=== PATIENT | female | born 1980 | race Caucasian/White ===

== ENCOUNTER 2020-12-01 19:26 | Emergency (ER) | payer OTHER, SELFPAY ==
--- NOTE | ~2020-12-01 | XR_ITS ---
EXAMINATION: XR wrist LT min 3V DATE: 12/01/2020 20:02 INDICATION: Left wrist pain. TECHNIQUE: 4 views of left wrist were obtained. COMPARISON: None. FINDINGS: Bone alignment is normal. No fracture. There is a an 8 mm nonaggressive lytic lesion in dis brittnee scaphoid. There is mild osteoarthritis in first carpometacarpal joint. IMPRESSION: 1. Nonaggressive lytic lesion in scaphoid, most likely an enchondroma. 2. Mild osteoarthritis of first carpometacarpal joint. Reviewed, dictated and finalized at location A. [facility] [employer]
[2020-12-01 19:29] VITALS: BP 144/94; PULSE 93; RESP 16; TEMP 36.6; O2SAT 100
--- NOTE | 2020-12-01 20:22 | ED.GENADULT ---
HPI - General Adult General Chief complaint: Extremity Injury, Upper Stated complaint: left wrist injury Time Seen by Provider: 12/01/20 19:33 Source: patient Mode of arrival: ambulatory Limitations: no limitations History of Present Illness HPI narrative: Patient is a 40-year-old female who presents with left wrist pain noting aching pain of the left wrist along the thumb patient woke with the pain denies injury or trauma or similar occurrence patient able to perform range of motion but notes weakness with range of motion and activity but otherwise denies radicular symptoms or paresthesias or other complaints has not taken anything for his symptoms presents per private vehicle no distress Related Data Home Medications Medication Instructions Recorded Confirmed venlafaxine mg PO 12/01/20 venlafaxine mg PO 12/01/20 12/01/20 Allergies Allergy/AdvReac Type Severity Reaction Status Date / Time hydrocodone Allergy Mild Itching, Verified 12/01/20 19:35 ABD. CRAMPING morphine Allergy Mild Itching Verified 12/01/20 19:35 ciprofloxacin Allergy Unknown HIVES Verified 12/01/20 19:35 codeine Allergy Unknown ITCHING Verified 12/01/20 19:35 Review of Systems Review of Systems: All systems reviewed & are unremarkable except as noted in HPI and below PMFSH Surgical History Surgical History (Updated 12/01/20 @ 20:23 by Morales Campo PA-C) History of orthopedic surgery Social History Social History (Updated 12/01/20 @ 20:23 by Morales Campo PA-C) Smoking status: Never smoker Exam Narrative: Exam Narrative: GENERAL: Well-appearing, well-nourished, and in no acute distress. HEAD: Normocephalic, atraumatic. EYES: PERRLA and EOMI. ENT: Nares clear, no rhinorrhea or epistaxis. Mucous membranes moist. EXTREMITIES: Normal range of motion. No edema. Tenderness along the radial aspect of the thumb and wrist no deformities noted SKIN: Warm, dry, no rash. NEURO: No focal deficits. Alert and oriented x3. Neurovascularly intact PSYCH: Normal mood and affect. Course Course Emergency Course: Patient room no distress felt appropriate for outpatient reevaluation Vital Signs Vital signs: Vital Signs Temperature 97.9 F 12/01/20 19:29 Pulse Rate 93 12/01/20 19:29 Respiratory Rate 16 12/01/20 19:29 Blood Pressure 144/94 H 12/01/20 19:29 Pulse Oximetry 100 12/01/20 19:29 Temperature 97.9 F 12/01/20 19:29 Pulse Rate 93 12/01/20 19:29 Respiratory Rate 16 12/01/20 19:29 Blood Pressure 144/94 H 12/01/20 19:29 Pulse Oximetry 100 12/01/20 19:29 Medical Decision Making MDM Narrative Medical decision making narrative: Patients injury or pain is consistent with musculoskeletal etiology. No signs of neurological or vascular compromise on exam. Compartments and tisues are soft without signs of compartment syndrome. Pain is felt appropriate for further evaluation on an outpatient basis. Vital Signs Vital Signs: Vital Signs Temperature 97.9 F 12/01/20 19:29 Pulse Rate 93 12/01/20 19:29 Respiratory Rate 16 12/01/20 19:29 Blood Pressure 144/94 H 12/01/20 19:29 Pulse Oximetry 100 12/01/20 19:29 Temperature 97.9 F 12/01/20 19:29 Pulse Rate 93 12/01/20 19:29 Respiratory Rate 16 12/01/20 19:29 Blood Pressure 144/94 H 12/01/20 19:29 Pulse Oximetry 100 12/01/20 19:29 Imaging Data Radiologist's impression: ITS Impressions Wrist X-Ray 12/01/20 20:05 IMPRESSION: 1. Nonaggressive lytic lesion in scaphoid, most likely an enchondroma. 2. Mild osteoarthritis of first carpometacarpal joint. Discharge Plan Discharge Clinical Impression: Sprain and strain of left wrist Patient Disposition: Home, Self-Care Condition: Stable Instructions: Antibiotic Form, Arthralgia (ED) Additional Instructions: Follow-up with your specialist in the next 7 days if symptoms persist Return if symptoms worsen or concerns or any increase in redness
== END 2020-12-01 20:39 | disposition home or self-care (01) ==
PROVIDERS: Emergency Provider Emergency Medicine; PCP Nurse Practitioner
DX: S63.502A Unspecified sprain of left wrist, initial encounter (principal); S66.912A Strain of unspecified muscle, fascia and tendon at wrist and hand level, left hand, initial encounter; M18.9 Osteoarthritis of first carpometacarpal joint, unspecified; X58.XXXA Exposure to other specified factors, initial encounter
CPT/HCPCS: 73110; 99283

== ENCOUNTER 2020-12-19 12:50 | Emergency (ER) | payer OTHER, SELFPAY ==
[2020-12-19 12:59] VITALS: BP 132/86; PULSE 90; RESP 20; TEMP 36.2; O2SAT 100
--- NOTE | 2020-12-19 14:18 | ED.BACK ---
HPI - Back Pain/Injury General Chief Complaint: Back Pain/Injury Stated Complaint: back pain Time Seen by Provider: 12/19/20 13:59 Source: patient Mode of arrival: ambulatory Limitations: no limitations History of Present Illness HPI Narrative: This is a 40 year old female that presents to the ER for low back pain since yesterday. No known injury or trauma. 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 Reports pain is in the left buttock and radiates down the left leg. Does report history of sciatic problems. She took Tylenol and ibuprofen yesterday with some relief. She has not taken any pain medication yet today. Denies fever, saddle anesthesia, or bowel/bladder incontinence. Related Data Home Medications Medication Instructions Recorded Confirmed venlafaxine mg PO 12/01/20 venlafaxine mg PO 12/01/20 12/01/20 Allergies Allergy/AdvReac Type Severity Reaction Status Date / Time hydrocodone Allergy Mild Itching, Verified 12/19/20 13:02 ABD. CRAMPING morphine Allergy Mild Itching Verified 12/19/20 13:02 ciprofloxacin Allergy Unknown HIVES Verified 12/19/20 13:02 codeine Allergy Unknown ITCHING Verified 12/19/20 13:02 Review of Systems Review of Systems: Narrative: CONSTITUTIONAL: Denies fever SKIN: Denies rash MUSCULOSKELETAL: Reports back pain, joint pain, and myalgia. NEUROLOGIC: Denies numbness, or weakness. All systems reviewed & are unremarkable except as noted in HPI and below PMFSH Past Medical History Medical History (Updated 12/19/20 @ 16:03 by Angela Paz PA-C) History of depression Surgical History Surgical History (Updated 12/01/20 @ 20:23 by Morales Campo PA-C) History of orthopedic surgery Social History Social History (Updated 12/01/20 @ 20:23 by Morales Campo PA-C) Smoking status: Never smoker Exam Narrative: Exam Narrative: GENERAL: Well-appearing, obese, and in no acute distress. HEAD: Normocephalic, atraumatic. EYES: EOMI. CHEST: Clear to auscultation. No respiratory distress. No wheezes rales or rhonchi HEART: Regular rate and rhythm. No murmur heard. Normal peripheral pulses. BACK: No midline spinal tenderness EXTREMITIES: Normal range of motion. No edema. Strength equal in bilateral lower extremities (5/5). Normal patellar reflexes bilaterally SKIN: Warm, dry, no rash. NEURO: No focal deficits. Alert and oriented x3. PSYCH: Normal mood and affect Course Vital Signs Vital signs: Vital Signs Temperature 97.2 F L 12/19/20 12:59 Pulse Rate 90 12/19/20 12:59 Respiratory Rate 20 12/19/20 12:59 Blood Pressure 132/86 12/19/20 12:59 Pulse Oximetry 100 12/19/20 12:59 Temperature 97.2 F L 12/19/20 12:59 Pulse Rate 90 12/19/20 12:59 Respiratory Rate 20 12/19/20 12:59 Blood Pressure 132/86 12/19/20 12:59 Pulse Oximetry 100 12/19/20 12:59 MDM - Back Pain/Injury MDM Narrative Medical decision making narrative: Patient presents to the emergency department for low back pain since yesterday. No known injury or trauma. Patient reports relief with Toradol, Tylenol, and Valium. She is neurologically intact. She is stable and felt appropriate for further outpatient evaluation. She was given warnings to return to the ER Critical Care Time Critical Care Time Critical Care Time: No Discharge Plan Discharge Clinical Impression: Sciatica Qualifiers: Laterality: left Qualified Code(s): M54.32 - Sciatica, left side Patient Disposition: Home, Self-Care Condition: Stable Instructions: Sciatica (ED) Additional Instructions: Return to the ER if you experience fever, weakness, numbness, bowel/bladder incontinence, or any other symptoms that are concerning to you Rest, use ice/heat, take anti-inflammatories (Aleve, Ibuprofen, Naproxen, etc) or Tylenol as needed for pain as well as muscle relaxer (diazepam) as needed for pain. Muscle relaxers can make you drowsy, do not drive if you take t
[2020-12-19] MEDS: KETOROLAC (*BKC) 60 MG/2 ML VIAL IM (14:37)
[2020-12-19] MEDS: ACETAMINOPHEN 500 MG TABLET 1000 MG PO (14:37)
[2020-12-19] MEDS: diazePAM INJ (*CRX) 10 MG/2 ML SYRINGE 5 MG IM (14:37)
[2020-12-19 16:43] VITALS: BP 128/76; PULSE 78; RESP 15; O2SAT 97
== END 2020-12-19 16:44 | disposition home or self-care (01) ==
PROVIDERS: Emergency Provider Emergency Medicine; PCP Nurse Practitioner
DX: M54.42 Lumbago with sciatica, left side (principal)
CPT/HCPCS: 96372; 99284; A9270; J1885; J3360

== ENCOUNTER 2023-03-05 12:17 | Outpatient (CLI) | payer OTHER, SELFPAY ==
--- NOTE | ~2023-03-05 | XR_ITS ---
EXAMINATION: XR finger 5th RT min 2V DATE: 03/05/2023 12:37 INDICATION: Right hand fifth digit fracture. TECHNIQUE: 3 views of right hand fifth digit were obtained. COMPARISON: None. FINDINGS: There is a fracture of dorsal base of fifth distal phalanx with 1.5 mm distraction of the d orsal fracture fragment. Other joint spaces are normal. IMPRESSION: 1. Fracture of dorsal base of fifth distal phalanx. Reviewed, dictated and finalized at location A.
== END 2023-03-05 12:18 | disposition home or self-care (01) ==
LOC: ANHIMG 12:19
PROVIDERS: PCP Family Medicine Sports Medicine; Visit Provider Plastic Surgery
DX: S62.666A Nondisplaced fracture of distal phalanx of right little finger, initial encounter for closed fracture (principal); X58.XXXA Exposure to other specified factors, initial encounter
CPT/HCPCS: 73140

== ENCOUNTER 2023-04-02 14:00 | Outpatient (CLI) | payer OTHER, SELFPAY ==
--- NOTE | ~2023-04-02 | XR_ITS ---
EXAMINATION: XR finger 5th RT min 2V DATE: 04/02/2023 14:13 INDICATION: Fracture of distal phalanx of right hand fifth digit. TECHNIQUE: 3 views of right hand fifth digit were obtained. COMPARISON: Right hand fifth digit radiographs 03/05/2023 FINDINGS: There is a fracture of dorsal base of fifth distal phalanx with 1 mm distraction of the hernán brittni fracture fragment. Callus is not identified. Other joint spaces are normal. IMPRESSION: 1. Fracture of dorsal base of fifth distal phalanx. Reviewed, dictated and finalized at location E.
== END 2023-04-02 14:01 | disposition home or self-care (01) ==
LOC: ANHLAB 14:02 → ANHIMG 14:02
PROVIDERS: PCP Family Medicine Sports Medicine; Visit Provider Plastic Surgery
DX: S62.666A Nondisplaced fracture of distal phalanx of right little finger, initial encounter for closed fracture (principal); X58.XXXA Exposure to other specified factors, initial encounter
CPT/HCPCS: 73140

== ENCOUNTER 2024-02-22 01:10 | Day surgery (SDC) | payer BC, SELFPAY ==
[2024-02-14 12:13] VITALS: BMI 41.7
--- NOTE | 2024-02-14 12:20 | PC.NURSE ---
Report to the Outpatient Waiting Room, entrance under the green pavilion located off [facility], at time 0830 on date 02/22/24. Planned Procedure Time: 1030. Time changes happen often and if your time is changed the preop area will call you the afternoon before. - You and your visitor will be asked to self-screen and do not enter if you have any COVID symptoms. - A mask is optional within the hospital at this time. Patients may have clear liquids (water, carbonated beverages, clear teas, apple juice) until 3 hours prior to surgery with a maximum of 20 ounces. - No food from midnight until time of surgery Take the following medications with a SIP of water the morning of surgery: WELLBUTRIN, VENLAFAXINE DO NOT STOP ANY OF YOUR OTHER PRESCRIPTION MEDICATIONS PRIOR TO SURGERY ?EXCEPT THE FOLLOWING Medications to discontinue per physician: N/A Date to take last dose: N/A Please no make-up, nail bulgarian, hairspray, perfume, deodorant, or body powder the day of surgery. No jewelry (including any body piercings) or valuables the day of surgery, leave them at home. Please take a shower or bath the night before, or the morning of, surgery with an antibacterial soap. Wear comfortable, loose fitting clothing. - Jewelry must be removed prior to entering the operating room. Rings and piercings that are not removed may be cut off. - The hospital will not accept responsibility for valuables. - Please leave all valuables, including medications, at home the day of surgery. If you are going home after surgery, a licensed van driver helper must drive you home. - NO public transportation without another adult if you receive anesthesia. - We recommend that an adult stay with you for 24 hours following discharge. - We also recommend that you do not drive, make important decision, drink alcoholic beverages, or take any drugs that were not prescribed by your health care provider for at least 24 hours after your discharge time. Follow any additional instructions given to you from your surgeon. If you or anyone in your household have experienced Covid symptoms in the past week, please notify your surgeon or the nurse liaison at the phone number below for possible testing. Telephone instructions given to PT - CRYSTAL and asked if any additional questions and then verbalized understanding. Patient advised to call surgeon office or pre surgery nurse liaison [phone] if any additional questions.
[2024-02-22] VITALS (8 sets, daily range): BP systolic 117–140; BP diastolic 54–87; PULSE 69–79; RESP 14–16; TEMP 36.3–36.6; O2SAT 94–100
[2024-02-22] MEDS: LACTATED RINGERS 1,000 ML 30 ML IV CONT ×2 (09:00→11:10)
[2024-02-22] MEDS: ACETAMINOPHEN 500 MG TABLET 1000 MG PO (09:00)
[2024-02-22] MEDS: KETOROLAC 15 MG/ML VIAL (*BKC) IV PUSH (09:22)
--- NOTE | 2024-02-22 09:41 | P.PNAN_ITS ---
Anes - Initial Pre Proc Eval Procedure: Operation Date: 02/22/24 10:30 Proposed Procedures p Laparoscopic Myomectomy - Елена Goode MD Date/Time: 02/22/24 09:41 Surgeon: Елена Goode MD Pre Op Diagnosis: pedunculated leiomyoma of uterus Patient Data Age: 43 Gender: F Height: 1.69 m Weight: 119.1 kg Last Vital Signs Temp 97.9 F 02/22/24 09:23 Pulse 79 02/22/24 09:23 Resp 16 02/22/24 09:23 BP 118/71 02/22/24 09:23 Pulse Ox 100 02/22/24 09:23 O2 Del Method Room Air 02/22/24 09:23 Allergies Allergy/AdvReac Type Severity Reaction Status Date / Time hydrocodone Allergy Mild Itching, Verified 02/14/24 12:09 ABD. CRAMPING morphine Allergy Mild Itching Verified 02/14/24 12:09 ciprofloxacin Allergy Unknown HIVES Verified 02/14/24 12:09 codeine Allergy Unknown ITCHING Verified 02/14/24 12:09 doxycycline Allergy Rash Verified 02/14/24 12:11 Home Medications Medication Instructions Recorded Confirmed Type venlafaxine 150 mg 150 mg PO DAILY 12/01/20 02/14/24 History capsule,extended release 24 hr venlafaxine 75 mg capsule,extended 75 mg PO DAILY 12/01/20 02/14/24 History release 24 hr bupropion HCl 150 mg 24 hr tablet, 150 mg PO DAILY 02/14/24 02/14/24 History extended release Patient hx anesthesia problems: none Family hx anesthesia problems: none Results Review: All pre-operative results and documents have been reviewed as part of the pre- operative evaluation. FOR[facility]LY [facility] Past Medical History Medical History (Updated 12/20/20 @ 00:00 by Criss Hernandez) History of depression Surgical History Surgical History (Updated 12/01/20 @ 20:23 by Morales Campo, MORGAN) History of orthopedic surgery Social History Social History (Updated 12/01/20 @ 20:23 by Morales Campo, MORGAN) Years smoked: 30 Smoking status: Current every day smoker Tobacco type: cigarettes and e-cigarettes/vaping Additional smoking assessment comments: QUIT CIGARETTES 2021, NOW VAPING Alcohol intake: current Alcohol use details: 1/YEAR Substance use: never Substance use type: does not use Living arrangements: with family Spiritual care concerns: No Anes - Eval Final PreProcedure Day of Procedure 02/22/24 09:41 Patient weight: morbidly obese Heart: regular rate and rhythm Lungs: clear to auscultation Airway: Mallampati scale class II Neurological: alert and oriented Last oral intake: >/= 8 hours ASA classification: III Emergent: no Anesthetic plan: proceed Anesthesia type and monitoring: general ETT and standard monitoring Results Review: All pre-operative results and documents have been reviewed as part of the pre- operative evaluation. Informed Consent: The patient's anesthetic plan and its attendant risks and benefits were discussed with the patient/family/POA. Questions were solicited and answers provided to the satisfaction of the patient/family/POA.
--- NOTE | 2024-02-22 09:47 | PM.IMHP ---
H&P: HPI History of Present Illness Date/Time: 02/22/24 09:47 Chief Complaint: Pelvic pain Narrative: 43-year-old female with pelvic pain and uterine fibroids. she has a pedunculated fibroid in the vagina. We have agreed to perform transvaginal myomectomy. she understands the procedure. She understands that there is risk. She understands injuries may occur that result in hospitalization, more surgery, and severe illness. She understands there is risk of hemorrhage infection . she denies any nausea, vomiting, fever, chills. She denies any chest pain shortness of breath. Review of Systems Review of Systems: All systems reviewed & are unremarkable except as noted in HPI and below Constitutional: Constitutional: Denies chills, Denies fatigue, Denies fever(s) and Denies weakness Eyes: Eyes: Denies blurry vision, Denies change in vision, Denies loss of peripheral vision, Denies loss of vision, Denies other visual disturbances and Denies eye pain ENT: Denies vertigo, Denies dizziness, Denies hearing loss, Denies mouth pain, Denies nasal obstruction, Denies neck mass and Denies neck pain Cardiovascular: Cardiovascular: Denies chest pain, Denies diaphoresis, Denies syncope, Denies leg edema and Denies dyspnea Respiratory: Respiratory: Denies chest congestion, Denies cough, Denies hemoptysis, Denies dyspnea and Denies wheezing Gastrointestinal: Gastrointestinal: Denies abdominal pain, Denies constipation, Denies diarrhea, Denies nausea and Denies vomiting Genitourinary: Genitourinary: Denies hematuria, Denies change in libido, Denies nocturia, Denies genital lesions, Denies flank pain and Denies urinary urgency Musculoskeletal: Musculoskeletal: Denies abnormal gait, Denies back pain, Denies myalgias, Denies arthralgias, Denies joint swelling, Denies muscle weakness and Denies neck pain Integumentary/Breasts: Skin/Breast: Denies swelling, Denies breast pain, Denies breast mass, Denies dry skin, Denies nipple discharge, Denies unusual bruising and Denies jaundice Neurologic: Denies Neuro-related abnormal movements, Denies Abnormal speech present, Denies abnormal gait, Denies behavioral changes, Denies confusion, Denies vertigo, Denies dizziness, Denies syncope, Denies loss of vision, Denies memory loss, Denies convulsions and Denies weakness Psychiatric: Psychiatric: Denies abnormal sleep pattern, Denies behavioral changes, Denies change in libido, Denies confusion, Denies depression, Denies anhedonia and Denies memory loss Endocrine: Endocrine: Reports no additional endocrine complaints, Denies change in libido and Denies fatigue Hematologic/Lymphatic: Hematologic/Lymphatic: Reports no additional hematologic/lymphatic complaints Allergic/Immunologic: Allergic/Immunologic: Reports no additional allergic/immunologic complaints and Denies wheezing PMFSH Past Medical History Medical History (Updated 02/22/24 @ 09:51 by Елена Goode MD) History of depression Surgical History Surgical History (Updated 12/01/20 @ 20:23 by Morales Campo, MORGAN) History of orthopedic surgery Social History Social History (Updated 12/01/20 @ 20:23 by Morales Campo, MORGAN) Years smoked: 30 Smoking status: Current every day smoker Tobacco type: cigarettes and e-cigarettes/vaping Additional smoking assessment comments: QUIT CIGARETTES 2021, NOW VAPING Alcohol intake: current Alcohol use details: 1/YEAR Substance use: never Substance use type: does not use Living arrangements: with family Spiritual care concerns: No Meds Home Medications and Allergies Home Medications Medication Instructions Recorded Confirmed Type venlafaxine 150 mg 150 mg PO DAILY 12/01/20 02/14/24 History capsule,extended release 24 hr venlafaxine 75 mg capsule,extended 75 mg PO DAILY 12/01/20 02/14/24 History release 24 hr bupropion HCl 150 mg 24 hr tablet, 150 mg PO DAILY 02/14/24 02/14/24 History extended release Allerg
--- NOTE | 2024-02-22 09:51 | WPDHPUPDATE1 ---
History and Physical Update Update Date/Time: 02/22/24 09:51 History and Physical has been reviewed, including an updated exam of the patient. There are NO changes in the patient's condition. Risks, benefits, and alternatives have been discussed and questions answered. Patient agrees to proceed with procedure.
--- NOTE | 2024-02-22 11:08 | P.OP_ITS ---
Procedure Note - Detailed Date of Procedure 02/22/24 Pre-op Diagnosis pedunculated leiomyoma of uterus Post-op Diagnosis Other (Intracervical polyp) Procedure Performed resection of endocervical polyp, hysteroscopy D&C Surgeon Елена Goode MD Anesthesia General Indications abnormal uterine bleeding Findings 3 cm endocervical polyp, possible polypoid structure in the posterior endometrial surface. Normal vulva, vagina Description of Procedure the patient was taken the operating room. She was prepped and draped in the dorsal lithotomy position after induction of mac anesthesia. A speculum was placed in the vagina. The cervix was grasped with a tenaculum. endocervical polyp was grasped with polyp forceps and transected at the base with cautery. It was thoroughly cauterized. It was hemostatic thereafter. The cervix was dilated about 1 cm. The hysteroscope was inserted. The intrauterine cavity and endocervix were evaluated. Hysteroscope was withdrawn. A medium-size curette was used to curettage all the surfaces were within the endometrial cavity. the sample was collected on Telfa and sent to pathology. The hysteroscope was reinserted and the above findings were noted. Patient jonathan erated the procedure well. The speculum and tenaculum were removed. She was taken recovery room in stable condition. Sponge lap and needle counts were correct x2. Estimated Blood Loss 20 Drains No Packing No Pathology Yes Complications No immediate complications Condition Stable Disposition PACU
== END 2024-02-22 12:59 | disposition home or self-care (01) ==
PROVIDERS: PCP Family Medicine Sports Medicine; Visit Provider Obstetrics & Gynecology
PROC: (CPT 49320; principal; 2024-02-22 10:30)
DX: N84.1 Polyp of cervix uteri (principal); F32.A Depression, unspecified; F17.210 Nicotine dependence, cigarettes, uncomplicated; E66.01 Morbid (severe) obesity due to excess calories; Z68.41 Body mass index [BMI] 40.0-44.9, adult; Z98.890 Other specified postprocedural states
CPT/HCPCS: 58558; 88305; A9270; J1100; J1885; J2250; J2405; J2704; J3010; J7120

== ENCOUNTER 2025-08-29 13:06 | Outpatient (CLI) | payer MEDICAID, SELFPAY | END 2025-08-29 13:07 | disposition home or self-care (01) | LOC: ANHSURGERY 13:10 | PROVIDERS: PCP Family Medicine Sports Medicine; Visit Provider Obstetrics & Gynecology | DX: D21.9 Benign neoplasm of connective and other soft tissue, unspecified (principal) | CPT/HCPCS: 36415; 86850; 86900; 86901; 86902 ==

== ENCOUNTER 2025-08-31 00:47 | Day surgery (SDC) | payer MEDICAID, SELFPAY ==
[2025-08-29 10:54] VITALS: BMI 36.1
--- NOTE | 2025-08-29 11:07 | PC.NURSE ---
[facility] has started construction of its new state of the art ER which will open Spring 2026. With this, we anticipate parking may be a challenge for some our surgical patients and families. Parking spaces are limited but are available for all Surgical, obstetrics, and ER patients sharing this lot. If you arrive and find you are having a hard time finding a parking space, please note that we understand the challenges, please drive around the hospital and park near Hospital Entrance 1. When you enter this entrance, you can ask a volunteer to direct or take you back to the surgical waiting area to check in. We appreciate everyone?s understanding of these expected challenges while we build for your future. Report to the Outpatient Waiting Room, entrance under the green pavilion located off [address], at time _0730_ on date _[id number]_. Planned Procedure Time: _0930_.? Time changes happen often and if your time is changed the preop area will call you the afternoon before. - You and your visitor will be asked to self-screen and do not enter if you have any COVID symptoms. Please call surgeon if you need to reschedule. - A mask is optional within the hospital at this time. Patients may have clear liquids (water, carbonated beverages, clear teas, apple juice) until 3 hours prior to surgery with a maximum of 20 ounces. - No food from midnight until time of surgery and no smoking, or chewing tobacco (or any form of nicotine). No chewing gum, candy or mints. Take only the following medications with a SIP of water on the morning of surgery: __Venlafaxine and Bupropion___ DO NOT STOP ANY OF YOUR OTHER PRESCRIPTION MEDICATIONS PRIOR TO SURGERY EXCEPT THE FOLLOWING Hold all vitamins and supplements for 3 days per anesthesiologist. Medications to discontinue per physician Date to take last dose Please no make-up, nail croatian, hairspray, perfume, deodorant, or body powder the day of surgery.? No jewelry (including any body piercings) or valuables the day of surgery, leave them at home.? Please take a shower or bath the night before, or the morning of, surgery with an antibacterial soap.? Wear comfortable, loose fitting clothing.? - Jewelry must be removed prior to entering the operating room.? Rings and piercings that are not removed may be cut off. - The hospital will not accept responsibility for valuables.? - Please leave all valuables, including medications, at home the day of surgery. If you are going home after surgery, a licensed piledriver carpenter must drive you home.? - NO public transportation without another adult if you receive anesthesia. - We recommend that an adult stay with you for 24 hours following discharge. - We also recommend that you do not drive, make important decision, drink alcoholic beverages, or take any drugs that were not prescribed by your health care provider for at least 24 hours after your discharge time. Follow any additional instructions given to you from your surgeon. Telephone instructions given to __Crystal___and asked if any additional questions and then verbalized understanding. Patient advised to call surgeon office or pre surgery nurse liaison [phone] if any additional questions.
[2025-08-31] VITALS (12 sets, daily range): BP systolic 116–146; BP diastolic 64–92; PULSE 74–84; RESP 12–20; TEMP 36.3–36.9; O2SAT 98–100
--- OUTSIDE RECORDS SUMMARY | 2025-08-31 00:50 | XMS_ITS | Encounter Summary ---
Author Organization [facility] Address [address] [place] [id number] Care Team Providers Care Test Bore Helper Name Role Phone Sakshi Barton DO Primary Care Provider [phone] Reason for Referral * Imaging (Urgent) - Closed Specialty Diagnoses / Procedures Referred By Contac t Referred To Contact RADIOLOGY Diagnoses Enlarged uterus Procedures US PELVIC NON OB COMP TA+TV Sakshi Barton DO [address] [place] [address] Phone: tel: fax: Referral ID Status Reason Start Date Expiration Date Visits Re quested Visits Authorized [id number] Closed 07/09/2025 07/09/2026 1 1 * Surgical (Urgent) - Pending Review Specialty Diagnoses / Procedures Referred By Contac t Referred To Contact NEUROSURGERY Diagnoses Abnormal MRI, lumbar spine Procedures OFFICE/OUTPATIENT NEW LOW MDM 30-44 MINUTES OFFICE/OUTPT VISIT,NEW,LEVL IV OFFICE/OUTPT VISIT,NEW,LEVL V OFFICE/OUTPT VISIT,EST,LEVL III OFFICE/OUTPT VISIT,EST,LEVL IV OFFICE/OUTPT VISIT,EST,LEVL V Sakshi Barton DO [address] [place] [address] Phone: tel: fax: [facility] - [address], [address] [place] [address] Phone: tel: fax: Referral ID Status Reason Start Date Expiration Date Visits Requested Visits Authorized [id number] Pending Review Specialty Services 07/09/2025 08/09/2026 99 99 Scheduling Instructions Pt will travel, no preference. New Disc Herniation L5-S1 and L4-5. Stenosis of the spine. Encounter Details Date Type Department Care Team (Late st Contact Info) Description 07/09/2025 Results Follow-Up [facility] [address] [place], [place] [id number] Sakshi Barton DO [address] [place] [id number] MRI LUMB SPINE WO CON Social History Tobacco Use Types Packs/Day Years Used Date Smoking Tobacco: Every Day Cigarettes Smokeless Tobacco: Never Comments:Around a pack per w [place] Alcohol Use Standard Drinks/Week Comments Not Currently 0 (1 standard drink = 0.6 oz pur e alcohol) Once every 6months AUDIT-C Answer Date Recorded Frequency of Alcohol Consumption Monthly or less 10/04/2018 Average Number of Drinks Not on file 018 Frequency of Binge Drinking Not on file 09/22 Overall Financial Resource Strain (CARDIA) Answe r Date Recorded Difficulty of Paying Living Expenses Very hard 10/04/2018 PHQ-2 Answer Date Recorded Patient Health Questionnaire-2 Score 4 01/04/2025 Hunger Vital Sign Answer Date Recorded Worried About Running Out of Food in the Last Ye ar Sometimes true 10/04/2018 Ran Out of Food in the Last Year Sometimes true 10/04/2018 PRAPARE - Transportation Answer Date Re corded Lack of Transportation (Medical) No 10/04/2018 Lack of Transportation (Non-Medical) No 10/04/2018 Education Answer Date Recorded What is the highest level of school you have completed or the highest degree you have received? 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 documented in this encounter Plan of Treatment Upcoming Encounters Date Type Department Care Team (Latest Contact Info) Description 09/11/2025 1:20 PM CDT Hospital Encounter [facility] Interventional [place] [address] [phone] Tish Bland MD [address] [facility] [address] [facility] [place] [address] 09/11/2025 1:20 PM CDT - 09/11/2025 1:40 PM CDT Surgery [facility] Interventional [place] [address] [phone] Tish Bland MD [address] [facility] [address] [place] [address] INJECTION EPIDURAL STEROID LUMBAR L5-S1 11/01/2025 1:20 PM BATCH MIXER [facility] [address] [facility] [place] [address] Antoni Laguna MD [address] [facility] [address] [place] [address] 11/29/2025 10:20 AM BATCH MIXER Office Visit [facility] [address] [facility], [address] [place] [address] Barney Trevino MD [address] [place] [address] Scheduled Procedures Name Priority Associated Diagnoses Date/Ti me INJECTION EPIDURAL STEROID LUMBAR Radiculopathy, lumbar region 09/11/2025 1:20 PM CDT Scheduled Referrals Name Type Priority Associated Diagnoses Orde r Schedule Ambulatory referral to Neurosurgery (OTHER) Referral Routine Abnormal MRI, lumbar spine Ordered: 07/09/2025 documented as of this encounter Results * US PELVIC NON OB COMP TA+TV (07/11/2025 2:58 PM CDT) Anatomical Region Laterality Modality Pelvis Computed Tomogra phy 07/11/2025 7:52 PM CDT Impressions 07/11/2025 8:06 PM CDT IMPRESSION: 1. Heterogeneous myometrial mass in the uterine fundus measuring up to 10.9 cm compatible with a fibroid. 2. An additional heterogeneous mass in the right adnexa may be continuous with the uterus, possibly reflecting a pedunculated fibroid, however this relationship is not well demonstrated on this examination. 3. Indistinct appearance of the endometrium with apparent thickening of the endometrium measuring approximately 21 mm in diameter. This is nonspecific and could potentially reflect endometrial hypertrophy. 4. Neither ovary is visualized on this examination. Referred By: SAKSHI BARTON Interpreted By: Mauri Solorzano DO, 07/11/2025 7:52 PM Narrative 07/11/2025 8:06 PM CDT [address] [place] [address] Examination: US PELVIC NON OB COMP TA+TV Exam time: 07/11/2025 2:01 PM Clinical history: Enlarged uterus noted on recent MRI lumbar spine. Comparison: MRI lumbar spine 07/05/2025. Technique: Sonographic evaluation of the pelvis was performed via transabdominal and transvaginal approaches to assess grayscale, color Doppler, and spectral waveform characteristics. Findings: UTERUS: The uterus measures approximately 13.3 x 12.9 x 10.7 cm. There is a heterogeneous myometrial mass in the uterine fundus that measures approximately 11.9 x 10.9 x 9.0 cm compatible with a fibroid. There is an additional heterogeneous mass in the right adnexa that may be contiguous with the uterus, possibly reflecting a pedunculated fibroid. ENDOMETRIUM: There is indistinct appearance of the endometrial stripe that appears to measure up to 21 mm in thickness. RIGHT ADNEXA: Sonographic evaluation of the right adnexa demonstrates a heterogeneous mass that may be continuous with the uterus; however this relationship is not well demonstrated on this examination. LEFT ADNEXA: Sonographic evaluation of the left adnexa failed to demonstrate the left ovary. ADDITIONAL FINDINGS: No free fluid is seen in the visualized pelvis. Procedure Note Mauri Solorzano, DO - 07/11/[address] [place] [address] Examination: US PELVIC NON OB COMP TA+TV Exam time: 07/11/2025 2:01 PM Clinical history: Enlarged uterus noted on recent MRI lumbar spine. Comparison: MRI lumbar spine 07/05/2025. Technique: Sonographic evaluation of the pelvis was performed viatransabdominal and transvaginal approaches to assess grayscale, colorDoppler, and spectral waveform characteristics. Findings: UTERUS: The uterus measures approximately 13.3 x 12.9 x 10.7 cm. There is aheterogeneous myometrial mass in the uterine fundus that measuresapproximately 11.9 x 10.9 x 9.0 cm compatible with a fibroid. There is anadditional heterogeneous mass in the right adnexa that may be contiguouswith the uterus, possibly reflecting a pedunculated fibroid. ENDOMETRIUM: There is indistinct appearance of the endometrial stripe that appears tomeasure up to 21 mm in thickness. RIGHT ADNEXA: Sonographic evaluation of the right adnexa demonstrates a heterogeneousmass that may be continuous with the uterus; however this relationship isnot well demonstrated on this examination. LEFT ADNEXA: Sonographic evaluation of the left adnexa failed to demonstrate the leftovary. ADDITIONAL FINDINGS: No free fluid is seen in the visualized pelvis. IMPRESSION: 1. Heterogeneous myometrial mass in the uterine fundus measuring up to10.9 cm compatible with a fibroid. 2. An additional heterogeneous mass in the right adnexa may be continuouswith the uterus, possibly reflecting a pedunculated fibroid, however thisrelationship is not well demonstrated on this examination. 3. Indistinct appearance of the endometrium with apparent thickening ofthe endometrium measuring approximately 21 mm in diameter. This isnonspecific and could potentially reflect endometrial hypertrophy. 4. Neither ovary is visualized on this examination. Referred By: SAKSHI BARTON Interpreted By: Mauri Solorzano DO, 07/11/2025 7:52 PM us Sakshi Barton DO ULTRASOUND Final Result documented in this encounter Visit Diagnoses Diagnosis Enlarged uterus- Primary Hypertrophy of uterus Abnormal MRI, lumbar spine Nonspecific (abnormal) findings on radiological and other examination of musculoskeletal system Enlarged uterus Hypertrophy of uterus Radiculopathy, lumbar region Thoracic or lumbosacral neuritis or radiculitis, unspecified documented in this encounter Additional Health Concerns Assessment Noted Time PHQ-9 Depression Total Score: 13 025 12:18 PM BATCH MIXER documented as of this encounter Care Teams Test Bore Helper Relationship Specialty Start Date End Date Sakshi Barton DO [address] [place] [address] [place] [address] PCP - General FAMILY PRACTICE 09/14/18 documented as of this encounter
--- OUTSIDE RECORDS SUMMARY | 2025-08-31 00:50 | XMS_ITS | Clinical Summary ---
Author Organization [facility] Address [address] [place] [id number] Care Team Providers Care Telephoto Engineer Name Role Phone Piyush Barton DO Primary Care Provider Allergies Active Allergy Reactions Criticality Noted Date Comments Cefuroxime Unknown,Other (see comment) Medium 01/21/20 13 Ciprofloxacin Atopic Dermatitis,Ot her (see comment) Low 11/02/2011 Doxycycline Rash Medium 11/02/2011 Hydrocodone Hives Low 03/30/2025 Hydrocodone-Acetaminophen Nausea Only Medium 1 Morphine Itching,Hives High 11/02/2011 Sumatriptan Anxiety,Other (see comment) High 013 Medications buPROPion XL (WELLBUTRIN XL) 150 MG 24 hr tabletIndications: Anxiety Take 1 tablet (150 mg total) by mouth daily. 90 tablet 1 10/12/20 24 Active venlafaxine XR (EFFEXOR-XR) 150 MG 24 hr capsuleIndications :Anxiety Take 1 capsule (150 mg total) by mouth daily. 90 capsule 1 10/12/20 24 Active venlafaxine XR (EFFEXOR-XR) 75 MG 24 hr capsuleIndications :Anxiety Take 1 capsule (75 mg total) by mouth daily. 90 capsule 1 10/12/20 24 Active albuterol sulfate HFA 108 (90 Base) MCG/ACT inhalerIndications :Pneumonia of right upper lobe due to infectious organism Inhale 2 puffs into the lungs every 4 (four) hours as needed. 18 g 1 01/04/20 25 Active famotidine (PEPCID) 40 MG tabletIndications: Gastroesophageal reflux disease, unspecified whether esophagitis present Take 1 tablet (40 mg total) by mouth nightly as needed for Heartburn. 30 tablet 6 06/22/20 25 Active traMADol (ULTRAM) 50 MG tabletIndications: Acute Pain < 7 Day Supply Take 1 tablet (50 mg total) by mouth every 6 (six) hours as needed for Pain. Indications: Acute Pain < 7 Day Supply 21 tablet 06/26/20 25 Active Additional Information Patient not taking.Reported on 07/25/2025 ondansetron (ZOFRAN-ODT) 4 MG disintegrating tablet Take 1 tablet (4 mg total) by mouth every 6 (six) hours as needed for Nausea. 20 tablet 07/23/20 25 Active Additional Information Patient not taking.Reported on 07/25/2025 naloxone (NARCAN) 4 MG/0.1ML nasal spray 1 spray by Nasal route as needed for Opioid reversal. may repeat every 2 to 3 minutes in alternating nostrils until medical assistance becomes available 1 each 07/23/20 25 026 Active Additional Information Patient not taking.Reported on 07/25/2025 predniSONE (DELTASONE) 10 mg tabletIndications: Chronic back pain PREDNISONE TAPER DIRECTED. Take 30mg PO DAILY x 3 days, then 20mg PO DAILY x 3 days, then 10mg PO DAILY X 3 days, then 5mg PO DAILY x 3 days, then stop. 19.5 tablet 07/25/20 25 Active gabapentin (NEURONTIN) 100 MG capsuleIndications :Chronic back pain Pt. To take 100mg PO q HS x 7 days, then increase to 200mg q HS x 7 days, then 300mg PO q HS; At this point, add 100mg PO in AM x 7 days, then increase to 200mg PO q AM x 7 days, then increase to 300mg PO Q AM; at the end of the regimen, pt. To be taking 300mg BID. Then follow up with Dr. Barton. 180 capsule 07/31/20 25 Active polyethylene glycol (GLYCOLAX) 17 GM/SCOOP powder Take 17 g by mouth daily for 15 days. Dissolve powder in 240 mL water 255 g 07/23/20 25 025 Active Problems Problem Noted Date Diagnosed Date Sacroiliitis, not elsewhere classified 4 Lumbosacral spondylosis without myelopathy 01/11 Other dietary vitamin B12 deficiency anemia 04/22 Vitamin B12 deficiency 02/02/2019 Vitamin D deficiency 02/02/2019 Ganglion cyst of wrist, left 02/02/2019 Herniated lumbar intervertebral disc 02/24/2018 Overview (09/29/2018): Date Onset: 02/24/2018 PMDD (premenstrual dysphoric disorder) 8 Overview (09/29/2018): Date Onset: 02/24/2018 Edentulism 09/17/2017 Overview (09/29/2018): Date Onset: 09/17/2017 Lumbar radiculopathy 09/17/2017 Overview (09/29/2018): Date Onset: 09/17/2017 Spondylisthesis 09/17/2017 Overview (09/29/2018): Note: Grade 1 Anterior L4-5 Date Onset: 09/17/2017 Cigarette nicotine dependence 06/01/2017 Overview (09/29/2018): Date Onset: 06/01/2017 Tobacco abuse counseling 06/01/2017 Overview (09/29/2018): Date Onset: 06/01/2017 Date Onset: 06/01/2017 Tobacco abuse 12/03/2015 Overview (09/29/2018): Date Onset: 12/03/2015 Displacement of intervertebral disc without myel opathy 05/13/2015 Overview (09/29/2018): Note: HNP with disc dessiction Allergic rhinitis 04/12/2015 Overview (09/29/2018): Date Onset: 04/12/2015 Carpal tunnel syndrome 08/20/2014 Overview (09/29/2018): Date Onset: 08/20/2014 Sebaceous cyst 01/20/2013 Overview (09/29/2018): Note: Left Axilla Date Onset: 01/20/2013 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 Overview (09/29/2018): Date Onset: 12/30/2012 Family history of diabetes mellitus 12/16/2012 Family history of other disease of digestive sys tem 12/16/2012 Low back pain 12/16/2012 Migraine 12/16/2012 Anxiety 11/02/2011 Asthma ([facility]) 11/02/2011 Depression 11/02/2011 Class 3 severe obesity due t o excess calories without serious comorbidity with body mass index (BMI) of 40.0 to 44.9 in adult 11/02/2011 Resolved Problems Problem Noted Date Diagnosed Date Resolved Date Positive testing for group B Streptococcus 12/18/2018 02/02/2019 Leg numbness 09/17/2017 02/02/2019 Overview (09/29/2018): Date Onset: 09/17/2017 Herniation of nucleus pulposus 09/17/2017 02/02/2019 Overview (01/19/2019): Date Onset: 09/17/2017 Mucus in stool 05/13/2015 02/02/2019 Overview (09/29/2018): Date Onset: 05/13/2015 Otitis externa 05/13/2015 02/02/2019 Overview (09/29/2018): Date Onset: 05/13/2015 Allergic conjunctivitis 04/12/201501/20 Overview (09/29/2018): Date Onset: 04/12/2015 Dental caries 04/12/2015 05/01/2019 Overview (09/29/2018): Date Onset: 04/12/2015 Other specified erythematous condition 01/20/2013 02/02/2019 Overview (09/29/2018): Date Onset: 01/20/2013 Hypertriglyceridemia 12/30/2012 019 Overview (09/29/2018): Date Onset: 12/30/2012 Chest wall pain 12/16/2012 02/02/2019 Diarrhea 12/16/2012 02/02/2019 Disorder of skin and subcutaneous tissue 12/16/2012 02/02/2019 Contact dermatitis 11/02/2011 Overview (09/29/2018): Note: chronic Tachycardia 11/02/2011 02/02/2019 Overview (09/29/2018): Note: periodic possible anxiety related Encounters Date Type Department Care Team Description 07/25/2025 9:20 AM CDT [facility] [address] [facility], [address] [place] [address] Barney Trevino MD New Patient (Lumbar Pain) 07/25/2025 MyCthereNowt Message Enc [facility] Inter[facility] [place] [phone] [id number] [facility] Provider Pain Management Referral 07/25/2025 Telephone [facility] - [facility] [address] [facility], [address] [place] [address] Barney Trevino MD Information 07/25/2025 Travel 07/23/2025 8:48 PM CDT - 07/23/2025 9:19 PM CDT Emergency [facility] Emergency Services [address] [place] [address] Albino Pereira MD Back Pain Discharge Disposition: Home or Self Care (Routine Discharge) 07/23/2025 Travel 07/23/2025 MyChart Message Enc Critical access hospital [address] [place] [address] Piyush Barton, Pain management 07/20/2025 12:13 PM CDT - 07/20/2025 11:59 PM CDT Hospital Encounter [facility] [address] [place] [address] Piyush Barton, Discharge Disposition: Home or Self Care (Routine Discharge) 07/20/2025 Results Follow-Up Critical access hospital [address] [place] [address] Piyush Barton, DO CT ABD+PEL WWO CON 07/20/2025 Travel 07/16/2025 Telephone Critical access hospital [address] [place] [address] Piyush Barton, Question 07/12/2025 Results Follow-Up Critical access hospital [address] [place] [address] Piyush Barton, US PELVIC NON OB COMP TA+TV 07/11/2025 1:59 PM CDT - 07/11/2025 11:59 PM CDT Hospital Encounter [facility] Ultrasound [address] [place] [address] Piyush Barton, Discharge Disposition: Home or Self Care (Routine Discharge) 07/11/2025 Travel 07/09/2025 Results Follow-Up Critical access hospital [address] [place] [address] Piyush Barton, MRI LUMB SPINE WO CON 07/09/2025 Telephone Critical access hospital [address] [place] [address] Piyush Barton, Results 07/05/2025 2:11 PM CDT - 07/05/2025 11:59 PM CDT Hospital Encounter [facility] MRI [address] [place] [address] Piyush Barton, Discharge Disposition: Home or Self Care (Routine Discharge) 07/05/2025 Travel 07/04/2025 10:49 AM CDT - 07/04/2025 11:59 PM CDT Hospital Encounter [facility] Therapy [address] [place] [address] Piyush Barton, Valentina Pleitez, MAP DRAFTER Discharge Disposition: Home or Self Care (Routine Discharge) 07/04/2025 Travel 06/28/2025 11:00 AM CDT - 06/28/2025 11:59 PM CDT Hospital Encounter [facility] Therapy [address] [place] [address] Piyush Barton DO Emerick, Noah D, PT Lumbar Radiculopathy Discharge Disposition: Home or Self Care (Routine Discharge) 06/28/2025 Travel 06/26/2025 Telephone Critical access hospital [address] [place] [address] Piyush Barton DO Concerns 06/22/2025 10:22 AM CDT - 06/22/2025 11:59 PM CDT Hospital Encounter [facility] Diagnostic Imaging [address] [place] [address] Piyush Barton, Discharge Disposition: Home or Self Care (Routine Discharge) 06/22/2025 9:40 AM CDT Office Visit Critical access hospital [address] [place] [address] Piyush Barton DO ER F/U (Pt was seen at [facility] in [place] for sciatica pain.) 06/22/2025 Results Follow-Up Critical access hospital [address] [place] [address] Piyush Barton DO XR LUMB SP+FLEX+EXT MIN 4V 06/22/2025 Travel 06/19/2025 Telephone Critical access hospital [address] [place] [address] Piyush Barton DO Information 06/18/2025 Scan [facility] HEALTH INFO SRVCS Scanned, [facility] from Last 3 Months Immunizations Immunization Administration Dates Next Due Dtp 02/23/1983, 1,12/19/1979,1978,1978 Dtp (Generic) 02/23/1983, 3,02/07/1981,1980,12/19/1979,12/19/1979,1978,0 1978,1978,1978 Fluzone (IIV3, Trivalent, 0. 5 ML Prefilled Syringe) 10/12/2024 Hepatitis B 06/10/2012,01/13/2012,12/09/2011 Hepatitis B (Generic: Adult) 01/13/2012,12/09/19 12 Influenza (Generic) 10/30/2014,10/02/2013,2012 MMR 07/08/1992,01/11/1980 MMR (Generic) 07/08/1992,01/11/1980 MMR (MMRII) 07/08/1992,01/11/1980 Opv 02/23/1983, 1,12/19/1979,1978,1978 PFIZER COVID-19 (ORIGINAL FORMULATION, PURPLE CAP) mRNA, LNP-S, PF, 30 MCG/0.3 ML DOSE 01/20/2021,12/30/2020 Polio Opv (Generic) 02/23/1983, 1,12/19/1979,1978,1978 Td 07/01/1993 Td (TDVAX) 07/01/1993 Td (Tenivac) preservative free 12/16/2011,1992 Tdap (Adacel) 09/08/2021 Tdap (Boostrix) 12/16/2011 Tdap (Generic) 12/16/2011,12/16/2011 Family History Medical History Relation Comments Depression Daughter 1 Depression Daughter 3 Alcohol Abuse Father Cancer Father Prostate cancer Diabetes Father Depression Maternal Aunt Depression Mother No Known Problems Paternal Aunt Cancer Paternal Grandfather Breast Cancer Sister Cancer Sister Started in her l iver Relation Status Comments Daughter 1 Alive Celiac disease Daughter 2 Alive lactose inotlera nce Daughter 3 Alive adhd , maybe bip olar Father Alive alcoholism ptsd htn Maternal Aunt (Age 65) chf dm jose htn hld, dm PN, glaucoma Maternal Grandfather Maternal Grandmother liver ca Mother Alive crohns Paternal Aunt Paternal Grandfather lung ca Paternal Grandmother Sister (Age 48) liver breast a nd lymph cancer Son Alive Social History Tobacco Use Types Packs/Day Years Used Date Smoking Tobacco: Every Day Cigarettes Smokeless Tobacco: Never Tobacco Cessation:Ready to Q uit: No; Counseling Given: Yes Comments:Around a pack per week Alcohol Use Standard Drinks/Week Comments Not Currently [...] Sex Assigned at Female 10/23/2022 11:08 AM GENERAL PURCHASING AGENT Legal Sex Female 5:37 PM CDT Gender Identity Female 10/23/2022 11:08 AM GENERAL PURCHASING AGENT Sexual Orientation Straight 10/23/2022 11 :08 AM GENERAL PURCHASING AGENT 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 on file Not on file Not on file Last Filed Vital Signs Vital Sign Reading Time Taken Comments Blood Pressure 102/62 07/25/2025 9:34 AM CDT Pulse 88 07/25/2025 9:34 AM CDT Temperature 37.1 C (98.7 F) 07/25/2025 9:34 AM CDT Respiratory Rate 19 07/23/2025 8:53 PM CDT Oxygen Saturation 99% 07/25/2025 9:34 AM CDT Inhaled Oxygen Concentration - - Weight 103.9 kg (229 lb) 07/25/2025 9:34 AM CDT Height 167.6 cm (5' 6) 07/25/2025 9:34 AM CDT Body Mass Index 36.96 07/25/2025 9:34 AM CDT Plan of Treatment Upcoming Encounters Date Type Department Care Team (Latest Contact Info) Description 09/11/2025 1:20 PM CDT Hospital Encounter [facility] Interventional Pain [place] [address] [phone] Tish Bland MD [address] [facility] [address] [place] [phone] 09/11/2025 1:20 PM CDT - 09/11/2025 1:40 PM CDT Surgery [facility] Inter[facility] [place] [address] [phone] Tish Bland MD Three [facility] [address] [place] [address] INJECTION EPIDURAL STEROID LUMBAR L5-S1 11/01/2025 1:20 PM GENERAL PURCHASING AGENT Office Visit [facility] Care - [address], [address] [place] [phone] Antoni Laguna MD [address] [place] [address] [place] [phone] 11/29/2025 10:20 AM GENERAL PURCHASING AGENT [facility] - [address], [address] [place] [phone] Barney Trevino MD [address] [place] [address] Scheduled Procedures Name Priority Associated Diagnoses Date/Ti me INJECTION EPIDURAL STEROID LUMBAR Radiculopathy, lumbar region 09/11/2025 1:20 PM CDT Health Maintenance Due Date Last Done Comments Colorectal Cancer Screening Colonoscopy (10 Years) 1978 Hepatitis C 1996 Pneumococcal Vaccine: Pediatrics (0 to 5 Years) and At-Risk Patients (6 to 49 Years) (1 of 2 - PCV) 1997 Cervical Cancer Screening Pap with HPV Testing (Age 30 to 64) Every 5 Years 2008 Annual Physical 01/19/2020 01/19/2019 COVID-19 Vaccine ( season) 2025 09/11/2021, 01/20/2021, 12/30/2020 Influenza Adult (#1) 2025 10/12/2024, 10/30/2014, 10/02/2013, Additional history exists Mammogram Screening 11/23/2026 11/23/2024 Cervical Cancer Screening Pap Smear (Age 30 to 64) Every 3 Years 12/21/2026 12/21/2023 Cervical Cancer Screening with HPV 12/21/2026 DTaP, Tdap and Td Vaccines (8 - Td or Tdap) 09/08/2031 09/08/2021, 12/16/2011, 12/16/2011, Additional history exists Hepatitis B Vaccines Completed 06/10/2012, 01/13/2012, 01/13/2012, Additional history exists PHQ-2 (Physician [place]) Completed 01/04/2025 Meningococcal B Vaccine Aged Out No l onger eligible based on patient's age to complete this topic Meningococcal Vaccine Aged Out No nabor tiffani eligible based on patient's age to complete this topic RSV Immunizations Under 20 Months Aged Out No longer eligible based on patient's age to complete this topic Goals Goal Patient Goal Type Associated Problems Recent Progress Patient-Stated? Author Autogenerat ed Goal Care Plan Autogenerated Problem No Mitesh Frias Procedures Procedure Name Priority Date/Time Associated Diagnosis Comments CT ABD+PEL WWO CON Routine 07/20/2025 12 :52 PM CDT Abnormal pelvic ultrasound US PELVIC NON OB COMP TA+TV JEREMY 07/11/2025 2:58 PM CDT Enlarged uterus MRI LUMB SPINE WO CON Routine 07/05/2025 2:40 PM CDT Low back pain Herniated lumbar intervertebral disc Lumbar radiculopathy Sacroiliitis, not elsewhere classified Lumbosacral spondylosis without myelopathy XR LUMB SP+FLEX+EXT MIN 4V Routine 06/22/2025 10:42 AM CDT Herniated lumbar intervertebral disc Acute bilateral low back pain with bilateral sciatica Lumbar radiculopathy Lumbosacral spondylosis without myelopathy Sacroiliitis, not elsewhere classified Sciatica of left side MG SCREENING W ABEBE CHRISTINA DIGI Routine 11/23/2024 1:57 PM GENERAL PURCHASING AGENT Cancer screening from Last 3 Months or Most Recently Relevant to Health Maintenance Results * CT ABD+PEL WWO CON (07/20/2025 12:52 PM CDT) Anatomical Region Laterality Modality Abdomen Computed Tomogra phy 07/20/2025 1:44 PM CDT Impressions 07/20/2025 1:48 PM CDT IMPRESSION: 1. Enlargement of the uterus due to bulky fibroids Ordered By: PIYUSH BARTON Interpreted By: Mansoor Albright MD, 07/20/2025 1:44 PM Narrative 07/20/2025 1:48 PM CDT [address] [place] [address] CT ABDOMEN AND PELVIS WITHOUT AND WITH CONTRAST Clinical history: Abnormal appearance of the uterus. Technique: Dynamic helical images of the abdomen and pelvis were obtained. The patient received 100 mL of Isovue 370 nonionic intravenous contrast through an IV in the right antecubital fossa. A dose lowering technique was used for this procedure, which may include, but is not limited to, dose reduction technique, automated exposure control, the use of iterative reconstruction, and ALARA (As Low As Reasonably Achievable) / Image Gently techniques. Comparison: None. Reference is made to a previous ultrasound of the pelvis performed July 11, 2025. FINDINGS: Images of the lower thorax demonstrate the visualized portion of the heart to appear normal. The lung bases are clear. Images of the abdomen demonstrate the overall size and morphology of the liver to be within normal limits. No hepatic lesions are observed. No ascites is seen. The gallbladder is present and normally distended. No stones are observed within its lumen and there is no evidence of cholecystitis or biliary obstruction. The pancreas, spleen, and adrenal glands appear grossly normal. The kidneys are normal in size bilaterally. There is normal symmetric enhancement after the administration of contrast. No stones or hydronephrosis is apparent. Both ureters follow normal expected course through the retroperitoneum. Images of the pelvis demonstrate the urinary bladder to appear normal. The uterus is significantly larger than expected due to multiple fibroids. Overall, the uterus appears to measure 16.2 x 12.5 x 9.4 cm in greatest dimensions. The myometrium is lobulated with concentric areas of contrast enhancement typical of uterine fibroids. These bulky fibroids architecturally distort the endometrium. Grossly, the lower uterine segment is displaced to the right of midline and visualized portion of the cervix appears normal. The adnexa appear grossly normal The stomach and small bowel have a normal overall appearance. The terminal ileum and appendix appear normal. The colon is within normal limits Procedure Note Mansoor Albright MD - 07/20/[address] [place] [address] CT ABDOMEN AND PELVIS WITHOUT AND WITH CONTRAST Clinical history: Abnormal appearance of the uterus. Technique: Dynamic helical images of the abdomen and pelvis were obtained.The patient received 100 mL of Isovue 370 nonionic intravenous contrastthrough an IV in the right antecubital fossa. A dose lowering techniquewas used for this procedure, which may include, but is not limited to,dose reduction technique, automated exposure control, the use of iterativereconstruction, and ALARA (As Low As Reasonably Achievable) / Image Gentlytechniques. Comparison: None. Reference is made to a previous ultrasound of the pelvisperformed July 11, 2025. FINDINGS: Images of the lower thorax demonstrate the visualized portion of the heartto appear normal. The lung bases are clear. Images of the abdomen demonstrate the overall size and morphology of theliver to be within normal limits. No hepatic lesions are observed. Noascites is seen. The gallbladder is present and normally distended. Nostones are observed within its lumen and there is no evidence ofcholecystitis or biliary obstruction. The pancreas, spleen, and adrenalglands appear grossly normal. The kidneys are normal in size bilaterally. There is normal symmetricenhancement after the administration of contrast. No stones orhydronephrosis is apparent. Both ureters follow normal expected coursethrough the retroperitoneum. Images of the pelvis demonstrate the urinary bladder to appear normal. Theuterus is significantly larger than expected due to multiple fibroids.Overall, the uterus appears to measure 16.2 x 12.5 x 9.4 cm in greatestdimensions. The myometrium is lobulated with concentric areas of contrastenhancement typical of uterine fibroids. These bulky fibroidsarchitecturally distort the endometrium. Grossly, the lower uterinesegment is displaced to the right of midline and visualized portion of thecervix appears normal. The adnexa appear grossly normal The stomach and small bowel have a normal overall appearance. The terminalileum and appendix appear normal. The colon is within normal limits IMPRESSION: 1. Enlargement of the uterus due to bulky fibroids Ordered By: PIYUSH BARTON Interpreted By: Mansoor Albright MD, 07/20/2025 1:44 PM us Piyush Barton DO CT Final Result * US PELVIC NON OB COMP TA+TV [...] is visualized on this examination. Referred By: PIYUSH BARTON Interpreted By: Mauri Solorzano DO, 07/11/2025 7:52 PM Narrative 07/11/2025 8:06 PM CDT [address] [place] [address] Examination: US PELVIC NON OB COMP TA+TV [...] in the visualized pelvis. Procedure Note Mauri Solorzano DO - 07/11/[address] [place] [address] Examination: US PELVIC NON OB COMP TA+TV [...] is visualized on this examination. Referred By: PIYUSH BARTON Interpreted By: Mauri Solorzano DO, 07/11/2025 7:52 PM us Piyush Barton DO ULTRASOUND Final Result * MRI LUMB SPINE WO CON (07/05/2025 2:40 PM CDT) Anatomical Region Laterality Modality Spine Magnetic Resonan ce 07/06/2025 4:50 AM CDT Impressions 07/07/2025 5:26 AM CDT IMPRESSION: 1. Development of large central to left paracentral broad-based disc herniation at L5-S1 with moderately severe spinal stenosis and mass effect upon the adjacent S1 nerve roots, more prominent on the left side. 2. Development of severe spinal stenosis at L4-5 due to degenerative change and spondylolisthesis. 3. Appearance of possible enlarged uterus measuring 12.5 x 9.3 cm in its superior aspect. Incompletely evaluated. Follow-up with pelvic ultrasound. Referred By: PIYUSH BARTON Interpreted By: Simeon Wallace MD, 07/06/2025 4:50 AM Narrative 07/07/2025 5:26 AM CDT [address] [place] [address] IMAGING STUDIES: MRI LUMB SPINE WO CON DATE: 07/05/2025 2:16 PM INDICATION: low back pain. Pain radiating to left leg. History of arthritis. No known injury COMPARISON: 09/17/2017 FINDINGS: Exam is slightly limited due to patient motion Vertebral bodies have a grossly normal height and marrow signal. Mild loss of disc space height at L4-5 and L5-S1 with disc dehydration. This has progressed since prior exam. Other disc spaces are well hydrated and well maintained. The conus ends at T12-L1 without gross abnormality. No paraspinal lesions. Appearance of possible enlarged uterus measuring 12.5 x 9.3 cm in its superior aspect. Incompletely evaluated. Follow-up with pelvic ultrasound T12-L1: No disc herniation, spinal or foraminal stenosis. L1-L2: No disc herniation, spinal or foraminal stenosis. L2-L3: No disc herniation, spinal or foraminal stenosis. L3-L4: No disc herniation, spinal or foraminal stenosis. L4-L5: Development of minimal grade 1 anterior spondylolisthesis of L4 and L5. Due to facet joint degenerative change. No distinct pars defect noted. Development of mild posterior disc/osteophyte complex. Advanced ligamentum flavum hypertrophy. Moderate facet joint degenerative change. Produces new severe spinal stenosis. Mild bilateral neuroforamen narrowing due to degenerative change and spondylolisthesis L5-S1: There is been development of a large central to left paracentral broad-based disc herniation. Measures 1.7 cm in transverse dimension. 9 mm in AP dimension. Moderately severe spinal stenosis. Mass effect upon the adjacent S1 nerve roots, more prominent on the left side. Bilateral neuroforamen are patent. Mild to moderate facet joint degenerative change. Procedure Note Simeon Wallace MD - 07/07/[address] [place] [address] IMAGING STUDIES: MRI LUMB SPINE WO CONDATE: 07/05/2025 2:16 PM INDICATION: low back pain. Pain radiating to left leg. History ofarthritis. No known injury COMPARISON: 09/17/2017 FINDINGS: Exam is slightly limited due to patient motion Vertebral bodies have a grossly normal height and marrow signal. Mildloss of disc space height at L4-5 and L5-S1 with disc dehydration. Thishas progressed since prior exam. Other disc spaces are well hydrated andwell maintained. The conus ends at T12-L1 without gross abnormality. No paraspinallesions. Appearance of possible enlarged uterus measuring 12.5 x 9.3 cmin its superior aspect. Incompletely evaluated. Follow-up with pelvicultrasound T12-L1: No disc herniation, spinal or foraminal stenosis. L1-L2: No disc herniation, spinal or foraminal stenosis. L2-L3: No disc herniation, spinal or foraminal stenosis. L3-L4: No disc herniation, spinal or foraminal stenosis. L4-L5: Development of minimal grade 1 anterior spondylolisthesis of L4 andL5. Due to facet joint degenerative change. No distinct pars defectnoted. Development of mild posterior disc/osteophyte complex. Advancedligamentum flavum hypertrophy. Moderate facet joint degenerative change.Produces new severe spinal stenosis. Mild bilateral neuroforamennarrowing due to degenerative change and spondylolisthesis L5-S1: There is been development of a large central to left paracentralbroad- based disc herniation. Measures 1.7 cm in transverse dimension. 9mm in AP dimension. Moderately severe spinal stenosis. Mass effect uponthe adjacent S1 nerve roots, more prominent on the left side. Bilateralneuroforamen are patent. Mild to moderate facet joint degenerativechange. IMPRESSION: 1. Development of large central to left paracentral broad-based discherniation at L5-S1 with moderately severe spinal stenosis and mass effectupon the adjacent S1 nerve roots, more prominent on the left side. 2. Development of severe spinal stenosis at L4-5 due to degenerativechange and spondylolisthesis. 3. Appearance of possible enlarged uterus measuring 12.5 x 9.3 cm in itssuperior aspect. Incompletely evaluated. Follow-up with pelvicultrasound. Referred By: PIYUSH BARTON Interpreted By: Simeon Wallace MD, 07/06/2025 4:50 AM Piyush Barton DO MRI Final Result * XR LUMB SP+FLEX+EXT MIN 4V (06/22/2025 10:42 AM CDT) Anatomical Region Laterality Modality Spine Computed Tomogra phy 06/22/2025 10:5 4 AM CDT Impressions 06/22/2025 10:55 AM CDT IMPRESSION: Stable appearance of the lumbar spine Ordered By: PIYUSH BARTON Interpreted By: Mansoor Albright MD, 06/22/2025 10:54 AM Narrative 06/22/2025 10:55 AM CDT [address] [place] [id number] 5 VIEWS OF THE LUMBAR SPINE Clinical History: Low back pain Comparison: July 12, 2016 3 views of the lumbar spine demonstrate no evidence of fracture. Minimal anterolisthesis of L5 on S1 is unchanged. No significant subluxation is noted during flexion or extension. The vertebral body heights are symmetric and within normal limits throughout. The intervertebral disc heights demonstrate symmetry with a normal overall appearance. The facets are normally aligned. The spinous processes and transverse processes appear normal Procedure Note Mansoor Albright MD - 06/22/[address] [place] [address] 5 VIEWS OF THE LUMBAR SPINE Clinical History: Low back pain Comparison: July 12, 2016 3 views of the lumbar spine demonstrate no evidence of fracture. Minimalanterolisthesis of L5 on S1 is unchanged. No significant subluxation isnoted during flexion or extension. The vertebral body heights aresymmetric and within normal limits throughout. The intervertebral discheights demonstrate symmetry with a normal overall appearance. The facetsare normally aligned. The spinous processes and transverse processesappear normal IMPRESSION: Stable appearance of the lumbar spine Ordered By: PIYUSH BARTON Interpreted By: Mansoor Albright MD, 06/22/2025 10:54 AM Piyush Barton DO GENERAL IMAGING Final Result * MG SCREENING W ABEBE CHRISTINA DIGI (11/23/2024 1:57 PM GENERAL PURCHASING AGENT) Anatomical Region Laterality Modality Breast Bilateral Mammography 11/23/2024 6:18 PM GENERAL PURCHASING AGENT Impressions 11/23/2024 6:20 PM GENERAL PURCHASING AGENT IMPRESSION: No features to suggest malignancy. In the absence of clinical symptoms, return for annual screening due in one year. Recommendation: Routine Screening Bilateral. Assessment: ACR BI-RADS 2 - BENIGN FINDING(S) Ordered By: PIYUSH BARTON Interpreted By: Timothy Gregg DO, 11/23/2024 6:18 PM Narrative 11/23/2024 6:20 PM GENERAL PURCHASING AGENT [facility] [place] WILDLIFE MANAGEMENT PROFESSOR [address] [place] [id number] Examination: BILATERAL SCREENING MAMMOGRAM Exam Date: 11/23/2024 1:57 PM Clinical Indication: 44 years of age female baseline screening. No personal history of breast cancer. There is a family history of breast cancer. Comparison: Mammograms dating back to None. Technique: Digital CC and MLO views. Tomosynthesis imaging acquisition. Study read with the assistance of a computer-aided detection system. Tissue density:There are scattered areas of fibroglandular density. Findings: Similar fibroglandular pattern bilaterally. Benign calcifications. No enlarged lymph nodes. A skin fold projects over the right breast on the MLO view. No suspicious masses, malignant appearing calcifications, skin thickening or other abnormalities are present. No findings of concern with computer-assisted software. Piyush Bartno DO MAMMO Final Result from Last 3 Months or Most Recently Relevant to Health Maintenance Additional Health Concerns Active Problems Noted Date Diagnosed Date Autogenerated Problem 07/25/2025 Insurance MEDICAID Care Teams Telephoto Engineer Relationship Specialty Start Date End Date Piyush Barton DO [address] [place] [address] [address] [place] [id number] PCP - General FAMILY PRACTICE 09/14/18
--- OUTSIDE RECORDS SUMMARY | 2025-08-31 00:50 | XMS_ITS | Encounter Summary ---
Author Organization [facility] Address [address] [place] [id number] Care Team Providers Care Traffic Engineering Technician Name Role Phone Sakshi Barton Primary Care Provider [phone] Encounter Details Date Type Department Care Team (Latest Contact Info) Description 07/25/2025 Get Me Listed Message Enc [facility] [place] [address] [id number] Srinath, [facility] Provider Pain Management Referral Social History Tobacco Use Types Packs/Day Years Used Date Smoking Tobacco: Every Day Cigarettes Smokeless Tobacco: Never Comments:Around a pack per w [place] Alcohol Use Standard Drinks/Week Comments Not Currently [...] Sex Assigned at Female 10/23/2022 11:08 AM DE ICER ELEMENT WINDER Legal Sex Female 5:37 PM CDT Gender Identity Female 10/23/2022 11:08 AM DE ICER ELEMENT WINDER Sexual Orientation Straight 10/23/2022 11 :08 AM DE ICER ELEMENT WINDER 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 on file Not on file Not on file documented as of this encounter Plan of Treatment Upcoming Encounters Date Type Department Care Team (Latest Contact Info) Description 09/11/2025 1:20 PM CDT Hospital Encounter [facility] [place] [address] [id number] Tish Bland MD Three [facility] [address] [place] [address] 09/11/2025 1:20 PM CDT - 09/11/2025 1:40 PM CDT Surgery [facility] [place] [address] [id number] Tish Bland MD Three [facility] [address] [place] [address] INJECTION EPIDURAL STEROID LUMBAR L5-S1 11/01/2025 1:20 PM DE ICER ELEMENT WINDER [facility] [address] [place] [address] Antoni Laguna MD 3 [facility] [address] [place] [phone] 11/29/2025 10:20 AM DE ICER ELEMENT WINDER [facility] [address] [place] [address] Barney Trevino MD [address] [place] [address] Scheduled Procedures Name Priority Associated Diagnoses Date/Ti me INJECTION EPIDURAL STEROID LUMBAR Radiculopathy, lumbar region 09/11/2025 1:20 PM CDT documented as of this encounter Goals Goal Patient Goal Type Associated Problems Recent Progress Patient-Stated? Author Autogenerat ed Goal Care Plan Autogenerated Problem No Mitesh Frias documented as of this encounter Visit Diagnoses Not on filedocumented in this encounter Additional Health Concerns Active Problems Noted Date Diagnosed Date Autogenerated Problem 07/25/2025 Assessment Noted Time PHQ-9 Depression Total Score: 13 025 12:18 PM DE ICER ELEMENT WINDER documented as of this encounter Care Teams Traffic Engineering Technician Relationship Specialty Start Date End Date Sakshi Barton DO [address] [place] [address] [place] [address] PCP - General FAMILY PRACTICE 09/14/18 documented as of this encounter
--- OUTSIDE RECORDS SUMMARY | 2025-08-31 00:50 | XMS_ITS | Encounter Summary ---
Author Organization [facility] Address [address] [place] [address] Care Team Providers Care School Operations Manager Name Role Phone Sakshi Barton Primary Care Provider Encounter Details Date Type Department Care Team (Late st Contact Info) Description 01/03/2025 [employer] Message [employer] Office [facility] [place] [address] Srinath, 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 Question Answer Date of Assessment Author Status Little interest or pleasure in doing things Nearly every day 01/04/2025 12:18 PM ROLLING ATTENDANT Rissa Mast Active Feeling down, depressed, or hopeless Several days 01/04/2025 12:18 PM ROLLING ATTENDANT Rissa Mast Active Patient Health Questionnaire-2 Score 4 01/04/2025 12:18 PM ROLLING ATTENDANT Rissa Mast Active * Question Answer Date of Assessment Author Status Trouble falling or staying asleep, or sleeping too much Nearly every day 01/04/2025 12:18 PM ROLLING ATTENDANT Rissa Mast Active Feeling tired or having little energy Nearly every day 01/04/2025 12:18 PM ROLLING ATTENDANT Rissa Mast Active Poor appetite or overeating Nearly every day 01/04/2025 12:18 PM ROLLING ATTENDANT Rissa Mast Active Feeling bad about yourself - or that you are a failure or have let yourself or your family down Not at all 01/04/2025 12:18 PM ROLLING ATTENDANT Rissa Mast Active Trouble concentrating on things, such as reading the newspaper or watching television Not at all 01/04/2025 12:18 PM ROLLING ATTENDANT Rissa Mast Active Moving or speaking so slowly that other people could have noticed? Or the opposite - being so fidgety or restless that you have been moving around a lot more than usual. Not at all 01/04/2025 12:18 PM Rissa Garcia Active Thoughts that you would be better off or hurting yourself in some way Not at all 01/04/2025 12:18 PM ROLLING ATTENDANT Rissa Mast Active Patient Health Questionnaire-9 Score 13 01/04/2025 12:18 PM ROLLING ATTENDANT Rissa Mast Active * If you checked off any problems on this questionnaire so far, Question Answer Date of Assessment Author Status How difficult have these problems made it for you to do your work, take care of things at home, or get along with other people? Not difficult at all 01/04/2025 12:18 PM ROLLING ATTENDANT Rissa Mast Active documented as of this encounter Plan of Treatment Upcoming Encounters Date Type Department Care Team (Latest Contact Info) Description 09/11/2025 1:20 PM CDT Hospital Encounter [facility] [place] [address] [id number] Tish Bland MD Three [facility] [address] [place] [phone] 09/11/2025 1:20 PM CDT - 09/11/2025 1:40 PM CDT Surgery [facility] Inter[facility] [place] [address] [id number] Tish Bland MD Three [facility] [address] [place] [phone] INJECTION EPIDURAL STEROID LUMBAR L5-S1 11/01/2025 1:20 PM ROLLING ATTENDANT [facility] [address], [address] [place] [phone] Antoni Laguna MD 3 [facility] [address] [place] [phone] 11/29/2025 10:20 AM ROLLING ATTENDANT [facility] [address], [address] [place] [phone] Barney Trevino MD [address] [place] [phone] Scheduled Procedures Name Priority Associated Diagnoses Date/Ti me INJECTION EPIDURAL STEROID LUMBAR Radiculopathy, lumbar region 09/11/2025 1:20 PM CDT documented as of this encounter Visit Diagnoses Not on filedocumented in this encounter Additional Health Concerns Infection Onset Date Last Indicated Resolved Time COVID-19 Rule Out 01/04/2025 01/04/2025 01/04/2025 1:06 PM ROLLING ATTENDANT Assessment Noted Time PHQ-9 Depression Total Score: 0 01/13/20 22 8:37 AM ROLLING ATTENDANT documented as of this encounter Care Teams School Operations Manager Relationship Specialty Start Date End Date Sakshi Barton DO [address] [place] [address] [place] [address] PCP - General FAMILY PRACTICE 09/14/18 documented as of this encounter
[2025-08-31] MEDS: ACETAMINOPHEN 500 MG TABLET 1000 MG PO ×2 (09:25→19:40)
[2025-08-31] MEDS: LACTATED RINGERS 1,000 ML 30 ML IV CONT ×3 (09:25→15:25)
[2025-08-31] MEDS: KETOROLAC 15 MG/ML VIAL (*BKC) IV PUSH (09:25)
--- NOTE | 2025-08-31 09:42 | WPDHPUPDATE1 ---
History and Physical Update Update Date/Time: 08/31/25 09:42 History and Physical has been reviewed, including an updated exam of the patient. There are NO changes in the patient's condition. Risks, benefits, and alternatives have been discussed and questions answered. Patient agrees to proceed with procedure.
--- NOTE | 2025-08-31 10:05 | WPDANESEPPF ---
Anes - Initial Pre Proc Eval Procedure: Operation Date: 08/31/25 09:30 Proposed Procedures p Robotic Assisted Hysterectomy with Bilateral Salpingectomy - Heraclio Goode MD Date/Time: 08/31/25 10:05 Surgeon: Heraclio Goode MD Pre Op Diagnosis: intramaual submucous subserous Patient Data Age: 45 Gender: F Height: 1.69 m Weight: 103.2 kg Allergies Allergy/AdvReac Type Severity Reaction Status Date / Time hydrocodone Allergy Mild Itching, Verified 08/29/25 10:52 ABD. CRAMPING morphine Allergy Mild Itching Verified 08/29/25 10:52 ciprofloxacin Allergy Unknown HIVES Verified 08/29/25 10:52 codeine Allergy Unknown ITCHING Verified 08/29/25 10:52 doxycycline Allergy Rash Verified 08/29/25 10:52 Home Medications ?Medication ?Instructions ?Recorded ?Confirmed ?Type venlafaxine 150 mg 150 mg PO DAILY 12/01/20 08/29/25 History capsule,extended release 24 hr venlafaxine 75 mg capsule,extended 75 mg PO DAILY 12/01/20 08/29/25 History release 24 hr bupropion HCl 150 mg 24 hr tablet, 150 mg PO DAILY 02/14/24 08/29/25 History extended release famotidine 40 mg tablet 40 mg PO DAILY 08/29/25 08/29/25 History Patient hx anesthesia problems: none Family hx anesthesia problems: none Results Review: All pre-operative results and documents have been reviewed as part of the pre-operative evaluation. [facility] Past Medical History Medical History History of depression Surgical History Surgical History History of orthopedic surgery Social History Social History Years smoked: 15 Smoking status: Current every day smoker Tobacco type: cigarettes and e-cigarettes/vaping Smoking end date: 08/29/22 Additional smoking assessment comments: Currently vaping. Alcohol intake: current Alcohol use details: 1/YEAR Substance use: former Substance use type: marijuana Living arrangements: with family Spiritual care concerns: No Anes - Eval Final PreProcedure Day of Procedure 08/31/25 10:05 Patient weight: obese Lungs: normal air movement Airway: Mallampati scale class II Neurological: alert and oriented Last oral intake: >/= 8 hours ASA classification: II Emergent: no Anesthetic plan: proceed Anesthesia type and monitoring: general ETT and standard monitoring Results Review: All pre-operative results and documents have been reviewed as part of the pre-operative evaluation. BMI 36, anxiety/depression, pt vapes daily, none this am. Informed Consent: The patient's anesthetic plan and its attendant risks and benefits were discussed with the patient/family/POA. Questions were solicited and answers provided to the satisfaction of the patient/family/POA.
[2025-08-31] MEDS: ceFAZolin 2 GM in SODIUM CHLORIDE 0.9% IV 50 ML 100 ML IVPB (10:33)
--- NOTE | 2025-08-31 13:03 | S_PTH ---
PATIENT: Marissa Martin LOC: [facility] U#:[id number] AGE/SX: 45/F ROOM: RE08/31/[address]: Heraclio Goode MD : 1980 BED: DIS: 09/01/2025 SPEC #: [id number] RECD: 08/31/25 13:53 STATUS: LISA REQ #: [id number] LISSA: 08/31/25 13:[address]: Heraclio Goode DEPT: [facility] Surgical RECD BY: Johann Vargas ENTERED: 08/31/25 13:53 SP TYPE: Surgical OTHR DR: Sakshi Barton, DO Tissues: A - Uterus Procedures: Hematoxylin and Eosin Stain Gross and Microscopic Level 5
--- NOTE | 2025-08-31 13:52 | W.PM.PROC2 ---
Procedure Note - Detailed Date of Procedure 08/31/25 Pre-op Diagnosis intramaual submucous subserous Post-op Diagnosis Same Procedure Performed Robot assisted Total hysterectomy with bilateral salpingectomy. Surgeon Heraclio Goode MD Anesthesia General Indications heavy vaginal bleeding, pelvic pain Findings Very large fibroid uterus. 920 g. Normal-appearing ovaries and fallopian tubes Description of Procedure This patient was taken to the operating room. She was prepped and draped in the dorsal lithotomy position after induction of general anesthesia. The uterine manipulator and Avis cup were placed. This was done with a speculum and tenaculum. The speculum was placed. The cervix was grasped with a tenaculum. The stay sutures were placed at 3 and 9:00 a.m.. The stay sutures of 0 Vicryl were tied to the appropriately Size scope after it was slipped around the cervix.. The tip of the KEVIN manipulator was placed in the intrauterine cavity. The cup was slid into place around the cervix and into the fornices. It was locked into place. The sutures were then wrapped around the handle and tied under tension. A 8 mm skin incision was made in the left upper quadrant the abdomen. a 5 mm Visiport trocar was inserted into abdominal cavity and pneumoperitoneum was achieved. A 8 mm supraumbilical incision was made and a 8 mm trocar was inserted into the intrauterine cavity under direct visualization of the scope. an 8 mm incision was made in the right upper quadrant of the abdomen and an 8 mm robotic trocar was placed the inter uterine cavity under direct visualization the scope. An 11 mm trocar was inserted in the right upper quadrant of the abdomen rectal is a cystoscope after an incision was made there as well. The robot was docked. Electronic Orientation of the robot was performed. Bilateral ureteral lysis was performed. This was done from the pelvic brim down to the uterine artery. This was done with careful dissection using sharp and blunt dissection. The fallopian tubes were removed bilaterally. The mesosalpinx around the fallopian tubes were cauterized transected with LigaSure cautery. This was done in a bilateral fashion from the ovary to the uterine cornua. The fallopian tube was transected at the uterine cornu and amputated. The tube was taken out the left lower quadrant trocar site. In a stepwise fashion along the lateral aspects of the uterus the round ligament and broad ligaments were cauterized transected down to the level of the uterine arteries. A bladder flap was created in the bladder was moved distally to the end of the cervix and over the Avis cup. The bilateral uterine arteries were cauterized and transected. Colpotomy was then performed. In a circumferential fashion the vagina was transected using unipolar cautery. The incision was made down on the Avis cup. After amputation of the uterus and cervix it was cut into 3 pieces they were very large. They were difficult to get out of the vagina. Was resulting small laceration on the vagina it was reapproximated with 3-0 Vicryl in a running fashion. The uterus and cervix were taken out through the vagina. A pneumo occluder was placed in the vagina. The vaginal cuff was closed with a 0 V lock suture in a running fashion. The pelvis was irrigated with copious amounts antibiotic irrigation. The ureters were again examined and found to be intact and flowing freely under the uterine arteries into the bladder. The bladder was intact. It was examined directly. Cystoscopy was performed after administration of methylene blue. The cystoscope was inserted. Bladder was distended with fluid. The ureteric meatus was observed bilaterally. Blue fluid was seen to egress bilaterally. The bladder was drained and the cystoscope was withdrawn. The vagina was irrigated with Betadine solution after removal of the Pneumo occluder. the trocars were removed after the robot was undocked. The skin was closed with subacute or Dermabond. The patient was taken to recovery room. She was stable condition. Sponge lap and needle counts were correct x2. Estimated Blood Loss 125 Urine Output 800 Drains Yes Packing No Pathology Yes Complications No immediate complications Condition Stable Disposition Floor
[2025-08-31] MEDS: fentaNYL CITRATE INJ (*CRX) 100 MCG/2 ML VIAL 25 MCG IV PUSH ×2 (14:30→15:09)
[2025-08-31] MEDS: ONDANSETRON INJ 4 MG/2 ML VIAL IV PUSH (15:01)
--- NOTE | 2025-08-31 16:05 | ADMGEN ---
This patient, Marissa Martin, was admitted to OB 2nd Floor Room 288-00. Patient/family oriented to hospital policies and general routines including ID bracelet, bed and alarms, visiting hours, pain management, procedures, bathroom and other care routines, personal items, smoking policy, room service/diet, and visiting hours. Information on how to activate the Rapid Response Team has been discussed. Patient/Family are encouraged to report perceived risks to care and to ask questions if they do not understand what they are told or what they should do.
[2025-08-31] MEDS: DEXTROSE 5%/LACTATED RINGERS 1,000 ML 125 ML IV CONT (16:34)
[2025-08-31] MEDS: DOCUSATE SODIUM 100 MG CAPSULE PO (19:07)
[2025-08-31] MEDS: SIMETHICONE 80 MG TAB.CHEW PO (19:07)
[2025-08-31] MEDS: KETOROLAC 30 MG/ML VIAL (*BKC) IV PUSH (19:40)
[2025-08-31] MEDS: PROMETHAZINE HCL 25 MG/ML AMPUL 12.5 MG IV PUSH (19:40)
[2025-09-01] MEDS: KETOROLAC 30 MG/ML VIAL (*BKC) IV PUSH ×2 (01:24→08:08)
[2025-09-01] MEDS: ACETAMINOPHEN 500 MG TABLET 1000 MG PO ×2 (01:25→08:06)
[2025-09-01 03:50] VITALS: BP 114/64; PULSE 80; RESP 18; TEMP 36.4; O2SAT 99
[2025-09-01] MEDS: buPROPion HCL XL (24 HR) 150 MG TABCR PO (08:06)
[2025-09-01] MEDS: DOCUSATE SODIUM 100 MG CAPSULE PO (08:06)
[2025-09-01] MEDS: VENLAFAXINE HCL XR 75 MG CAP.ER.24H PO (08:07)
[2025-09-01] MEDS: SIMETHICONE 80 MG TAB.CHEW PO (08:08)
[2025-09-01] MEDS: VENLAFAXINE HCL XR 75 MG CAP.ER.24H 150 MG PO (08:08)
[2025-09-01 08:13] VITALS: BP 125/62; PULSE 89; RESP 14; TEMP 36.7; O2SAT 99
--- NOTE | 2025-09-01 09:39 | P.PNOB_ITS ---
CAR WRECKER - A/P Postoperative Procedures: Procedures Operation Date: 08/31/25 09:30 Actual Procedure Side Surgeon p Robotic Assisted Hysterectomy with Bilateral Salpingectomy Bilateral Heraclio Goode MD Postoperative day: 1 Postoperative status: doing well Postoperative plan: see orders Time Spent With Patient Time: Total time spent is greater than 50% in coordination of care (as documented) at patient's floor/unit and/or counseling patient: Time with patient: less than 15 minutes CAR WRECKER- PN:Subj Post-Op Subjective Date/time seen: 09/01/25 09:39 Subjective: patient reports feeling better, patient has no complaints and pain is well controlled Exam Const: General: healthy appearing, comfortable and no acute distress Resp: Auscultation: clear to auscultation bilaterally, no rales, no rhonchi and no wheezes Cardio: Rate: regular rate Heart sounds: no click, no murmurs and no rubs GI: Inspection: non-distended Auscultation: normal bowel sounds Extrem: General: normal to inspection, no pedal edema and no calf tenderness CAR WRECKER - PN: Obj Data Vital Signs Vital Signs: Vital Signs - 24 hr 08/31/25 14:05 08/31/25 14:20 08/31/25 14:35 Temperature 97.3 F L Pulse Rate 76 84 74 Respiratory Rate 14 12 15 Blood Pressure 132/92 H 133/75 130/73 Pulse Oximetry 100 100 100 Oxygen Delivery Simple Face Mask Simple Face Mask Simple Face Mask Oxygen Flow Rate 10 10 10 08/31/25 14:50 08/31/25 15:05 08/31/25 15:20 Temperature Pulse Rate 74 77 78 Respiratory Rate 14 14 19 Blood Pressure 136/81 142/68 H 135/76 Pulse Oximetry 100 100 98 Oxygen Delivery Room Air Room Air Room Air Oxygen Flow Rate 08/31/25 15:35 08/31/25 15:50 08/31/25 16:10 Temperature 98.0 F Pulse Rate 77 77 81 Respiratory Rate 17 16 20 Blood Pressure 128/70 125/72 146/84 H Pulse Oximetry 98 98 99 Oxygen Delivery Room Air Room Air Oxygen Flow Rate 08/31/25 16:10 08/31/25 19:35 08/31/25 19:39 Temperature 98.4 F Pulse Rate 79 Respiratory Rate 18 Blood Pressure 126/64 Pulse Oximetry 98 Oxygen Delivery Room Air Room Air Oxygen Flow Rate 08/31/25 23:35 08/31/25 23:56 09/01/25 03:28 Temperature 98.1 F Pulse Rate 77 Respiratory Rate 18 Blood Pressure 116/65 Pulse Oximetry 100 Oxygen Delivery Room Air Room Air Oxygen Flow Rate 09/01/25 03:50 09/01/25 08:13 Temperature 97.5 F L 98.1 F Pulse Rate 80 89 Respiratory Rate 18 14 Blood Pressure 114/64 125/62 Pulse Oximetry 99 99 Oxygen Delivery Oxygen Flow Rate Intake/Output Intake/Output: Intake & Output 08/29/25 08/30/25 08/31/25 09/01/25 23:59 23:59 23:59 23:59 Intake Total 1050 240 Output Total 1215 900 Balance -165 -660 Meds/Results Medications: Active Medications Generic Name Dose Route Start Last Admin Trade Name Freq PRN Reason Stop Dose Admin Acetaminophen 1,000 mg 08/31/25 18:00 09/01/25 08:06 Acetaminophen 500 Mg Tablet PO 1,000 mg Q6HR MELYSSA Administration Bupropion HCl 150 mg 09/01/25 09:00 09/01/25 08:06 Bupropion Hcl Xl (24 Hr) 150 Mg Tabcr PO 150 mg DAILY MELYSSA Administration Docusate Sodium 100 mg 08/31/25 17:00 09/01/25 08:06 Docusate Sodium 100 Mg Capsule PO 100 mg BID MELYSSA Administration Famotidine 40 mg 09/01/25 09:00 09/01/25 09:12 Famotidine 20 Mg Tablet PO Not Given DAILY MELYSSA Dextrose/Lactated Ringer's 1,000 mls @ 125 mls/hr 08/31/25 16:03 09/01/25 09:11 Dextrose 5%/Lactated Ringers IV CONT Not Given .Q8H MELYSSA Ibuprofen 600 mg 09/01/25 12:00 Ibuprofen 600 Mg Tablet PO Q6HR MELYSSA Naloxone HCl 0.1 mg 08/31/25 16:03 Naloxone Hcl 0.4 Mg/Ml Vial IV PUSH Q2M PRN Respiratory rate less than 10 Ondansetron HCl 4 mg 08/31/25 16:03 Ondansetron Inj 4 Mg/2 Ml Vial IV PUSH Q6H PRN Nausea And Vomiting Oxycodone HCl 5 mg 08/31/25 16:03 Oxycodone Hcl (*Crx) 5 Mg Tab Ir PO Q4H PRN Pain Rated 4-6 Oxycodone HCl 10 mg 08/31/25 16:03 Oxycodone Hcl (*Crx) 5 Mg Tab Ir PO Q6H PRN Pain Rated 7-10 Promethazine HCl 12.5 mg 08/31/25 18:37 08/31/25 19:40 Promethazine Hcl 25 Mg/Ml Ampul IV PUSH 12.5 mg Q4H PRN Administration Nausea And Vomiting Simethicone 80 mg 08/31/25 17:00 09/01/25 08:08 Simethicone 80 Mg Tab.Chew PO 80 mg TIDWM MELYSSA Administration Venlafaxine HCl 75 mg 09/01/25 09:00 09/01/25 08:07 Venlafaxine Hcl Xr 75 Mg Cap.Er.24h PO 75 mg DAILY MELYSSA Administration Venlafaxine HCl 150 mg 09/01/25 09:00 09/01/25 08:08 Venlafaxine Hcl Xr 75 Mg Cap.Er.24h PO 150 mg DAILY MELYSSA Administration
== END 2025-09-01 12:08 | disposition home or self-care (01) ==
LOC: ANHSURGERY 07:26 → ANHOB2 16:34
PROVIDERS: PCP Family Medicine Sports Medicine; Visit Provider Obstetrics & Gynecology
PROC: (CPT 58573; principal; 2025-08-31 09:30)
DX: D25.9 Leiomyoma of uterus, unspecified (principal); G89.18 Other acute postprocedural pain; F41.9 Anxiety disorder, unspecified; J45.909 Unspecified asthma, uncomplicated; F32.A Depression, unspecified; M19.90 Unspecified osteoarthritis, unspecified site; F17.290 Nicotine dependence, other tobacco product, uncomplicated; F12.90 Cannabis use, unspecified, uncomplicated; E66.9 Obesity, unspecified; Z68.35 Body mass index [BMI] 35.0-35.9, adult; Z79.51 Long term (current) use of inhaled steroids; Z79.891 Long term (current) use of opiate analgesic; Z98.890 Other specified postprocedural states; Z98.51 Tubal ligation status; Z80.0 Family history of malignant neoplasm of digestive organs; Z80.1 Family history of malignant neoplasm of trachea, bronchus and lung; Z80.42 Family history of malignant neoplasm of prostate
CPT/HCPCS: 58573; S2900; 88307; 99199; J0690; A9270; J1100; J1200; J1885; J2003; J2250; J2270; J2405; J2550; J2704; J3010; J7030; J7120; J7121; Q9968